=== PATIENT | female | born 1970 | race Caucasian/White ===

== ENCOUNTER 2017-01-17 12:58 | Emergency (ER) | payer OTHER ==
[2017-01-17 13:15] VITALS: BP 124/86; PULSE 74; RESP 16; TEMP 97.9; O2SAT 96
--- NOTE | 2017-01-17 13:47 | EDPHY ---
H & P Time Seen by Provider: 01/17/17 13:38 HPI/ROS: CHIEF COMPLAINT: Ankle injury HISTORY OF PRESENT ILLNESS: This is a 46-year-old female presenting to the emergency department complaining of left ankle pain status post twisting ankle. Patient states she got up from sitting down around 1215 twisted her left ankle , increased pain with weight-bearing. Denies any other injuries, ibuprofen 200 mg at 12:30 p.m.. REVIEW OF SYSTEMS: Constitutional: No fever, no chills. Eyes: No discharge. No blurred vision Cardiovascular: No chest pain, no palpitations. Respiratory: No cough, no shortness of breath. Gastrointestinal: No abdominal pain, no vomiting. Musculoskeletal: No back pain. Left ankle pain Skin: No rashes. Neurological: No headache. Smoking Status: Never smoked Physical Exam: General Appearance: Alert and no distress. Eyes: Pupils equal and round no injection. Respiratory: Chest is nontender, lungs are clear to auscultation. Cardiac: regular rate and rhythm Gastrointestinal: Abdomen is soft and nontender Musculoskeletal: Neck is supple and nontender. Extremities: Left ankle tender with swelling at the lateral malleolus. No obvious deformity positive CMS intact Skin: No rashes or lesions. Constitutional: Initial Vital Signs Temperature (C) 36.6 C 01/17/17 13:12 Heart Rate 74 01/17/17 13:12 Respiratory Rate 16 01/17/17 13:12 Blood Pressure 124/86 H 01/17/17 13:12 O2 Sat (%) 96 01/17/17 13:12 O2 Delivery Mode Room Air Allergies/Adverse Reactions: No Known Allergies Allergy (Unverified 03/28/11 10:22) Home Medications: Medication Instructions Recorded NK [No Known Home Meds] 01/17/17 Medical Decision Making - Diagnostics Imaging Results: Imaging Impressions Ankle X-Ray 01/17/17 13:15 Impression: Ankle sprain. ED Course/Re-evaluation: Discussed ED plan of care: X-ray of left ankle negative for any acute fracture 1345: Discussed x-ray results with patient, plan is to place in a a ankle air splint with weight-bearing as tolerated. Ice 15 minutes several times a day to help decrease swelling, ibuprofen 600 mg every 6-8 hours as needed. Patient declined pain at this time. Discharge home---> stable, discussed all discharge instructions Differential Diagnosis: Other differential diagnosis considered but not limited to ankle dislocation, malleolar fracture, and tib-fib fracture Departure - Departure Disposition: Home, Routine, Self-Care Clinical Impression: Left ankle sprain Qualifiers: Encounter type: initial encounter Involved ligament of ankle: unspecified ligament Qualified Code(s): S93.402A - Sprain of unspecified ligament of left ankle, initial encounter Condition: Good Instructions: Ankle Sprain (ED), Ankle Stirrup Splint (ED) Additional Instructions: 1. Keep elevated, decreased prolonged pressure on left lower extremity 2. Ice several times a day as needed to decrease swelling Referrals: Gina Bianchi DO [Primary Care Provider] - As per Instructions
== END 2017-01-17 14:12 | disposition home or self-care (01) ==
DX: S93.402A Sprain of unspecified ligament of left ankle, initial encounter (principal); X58.XXXA Exposure to other specified factors, initial encounter
CPT/HCPCS: L4350